=== PATIENT | male | born 1985 | race Caucasian/White ===

== ENCOUNTER 2019-04-10 17:52 | Emergency (ER) | payer MEDICAID ==
[~2019-04-10] VITALS: Ht 185.4 cm; Wt 136.4 kg
[~2019-04-10 17:52] MED LIST: CLIN150C8 PO
[2019-04-10] MEDS ORDERED: NAPR-56 PO (19:05)
[2019-04-10] MEDS ORDERED: ketorolac trometh inj. 60 MG/2 ML VIAL IM ONE (19:05)
[2019-04-10] MEDS ORDERED: METH-360 PO (19:05)
[2019-04-10] MEDS ORDERED: orphenadrine citrate 60mg/2ml inj. IM ONE (19:05)
[2019-04-10 20:06] VITALS: BP 115/75
== END 2019-04-10 20:08 | disposition home or self-care (01) ==
LOC: ER 17:53
DX: M54.5 Low back pain (principal); F15.90 Other stimulant use, unspecified, uncomplicated; Z79.899 Other long term (current) drug therapy; X50.9XXA Other and unspecified overexertion or strenuous movements or postures, initial encounter; Y93.63 Activity, rugby; Y92.89 Other specified places as the place of occurrence of the external cause; Y99.8 Other external cause status
CPT/HCPCS: 96372; 99283; J1885; J2360

== ENCOUNTER 2024-01-10 22:51 | Emergency (ER) | payer MEDICAID ==
[~2024-01-10] VITALS: Ht 185.4 cm; Wt 127.5 kg
[~2024-01-10 22:51] MED LIST changes: +CLIN-214 PO; -CLIN150C8 PO; +METH-360 PO
[2024-01-10 23:02] VITALS: BP 157/84; PULSE 77; RESP 16; TEMP 98.3; O2SAT 99
== END 2024-01-11 02:24 | disposition left against medical advice (07) ==
LOC: ER 22:52
DX: R60.9 Edema, unspecified (principal); R51.9 Headache, unspecified; Z53.21 Procedure and treatment not carried out due to patient leaving prior to being seen by health care provider
CPT/HCPCS: 99281